=== PATIENT | male | born 1975 | race Caucasian/White ===

== ENCOUNTER 2016-10-12 02:40 | Emergency (ER) | payer OTHER ==
[~2016-10-12] VITALS: Ht 177.8 cm; Wt 74.8 kg
[~2016-10-12 02:40] MED LIST: ACETAMINOPHEN325 M1 PO; AMBIEN 10 MG TA10 MG PO; ASPIRIN EC325 M1 PO; CARISOPRODOL 3350 MG PO; CIPROFLOXACIN500 M1 PO; DESYREL50 MG PO; DIFLUCAN150 MG PO; HYDROCODONE-AP1 EAC6 PO; KEFLEX500 MG PO; LISINOPRIL10 MG PO; LISINOPRIL5 MG PO; LORTAB 7.5/5001 TA3 PO; MACROBID 100 M100 M1 PO; NAPROSYN500 MG PO; NOHOMEMEDICATIONS; NORCO 5-325 TA1 EACH PO; PERCOCET 5-3251 EACH PO; SENOKOT-S1 TA1 PO; SEROQUEL 100 M100 M1 PO; TRAZODONE HCL100 MG PO; VICODIN 5-3001 EACH PO; ZOFRAN ODT4 MG PO
[2016-10-12 02:58] LABS: URINE BILIRUBIN NEGATIVE (Negative); URINE BLOOD 1+ (Negative); URINE COLOR YELLOW; URINE GLUCOSE-RANDOM* TRACE (Negative); URINE KETONES NEGATIVE (Negative); URINE LEUKOCYTES-REFLEX NEGATIVE (Negative); URINE PROTEIN (DIPSTICK) 2+ (Negative); URINE UROBILINOGEN 0.2 E.U./dl (0.2-1.0)
[2016-10-12] MEDS ORDERED: TRAZODONE HCL100 MG PO (03:05)
[2016-10-12] MEDS ORDERED: CARVEDILOL12.5 MG PO (03:06)
[2016-10-12] MEDS ORDERED: METHYLPREDNISOLO4 M1 PO (03:06)
[2016-10-12 03:25] LABS: ABSOLUTE NEUTROPHILS 4.1 thou/uL (1.4-8.2); BASOPHILS 1.3 % (0.0-2.0); EOSINOPHILS 4.8 % (0.0-3.0); HEMATOCRIT 30.3 % (42.0-52.0); HEMOGLOBIN 11.1 gm/dL (14.0-18.0); LYMPHOCYTES 31.7 % (24.0-44.0); MCH 31.9 pg (26.0-34.0); MCHC 36.7 g/dL (28.0-37.0); MCV 86.9 fL (80.0-100.0); MONOCYTES 9.7 % (1.0-8.0); PLATELET COUNT 234 thou/uL (150-400); POLYS 52.5 % (36.0-66.0); RBC 3.49 mil/uL (4.50-6.00); RDW 13.1 % (10.5-14.5); WBC 7.8 thou/uL (4.0-11.0)
[2016-10-12 03:26] LABS: SQUAMOUS 0-3 Few /LPF (0-3)
[2016-10-12 03:27] LABS: CASTS None Seen /LPF (None Seen); CRYSTALS None Seen /LPF (None Seen); URINE RBC 0-2 Rare /HPF (0-2); URINE WBC-REFLEX None Seen /HPF (0-5)
[2016-10-12 03:31] LABS: MANUAL DIFF NO
[2016-10-12 03:38] LABS: CALCIUM 8.9 mg/dL (8.5-10.1); CREATININE 8.6 mg/dL (0.7-1.3); POTASSIUM 3.2 mmol/L (3.5-5.1)
[2016-10-12 03:42] LABS: ALBUMIN 3.7 g/dL (3.4-5.0); TOTAL BILIRUBIN 0.2 mg/dL (<0.1-1.0); TOTAL PROTEIN 7.3 g/dL (6.4-8.2)
[2016-10-12] MEDS ORDERED: NORCO 5-325 TA1 EACH PO (04:52)
[2016-10-12] MEDS ORDERED: ZOFRAN ODT4 MG PO (04:53)
[2016-10-12 05:19] VITALS: BP 180/124
== END 2016-10-12 05:20 | disposition home or self-care (01) ==
LOC: ER 02:40
PROVIDERS: Emergency Medicine
DX: R10.9 Unspecified abdominal pain (principal); F31.9 Bipolar disorder, unspecified; G89.29 Other chronic pain; I12.0 Hypertensive chronic kidney disease with stage 5 chronic kidney disease or end stage renal disease; N18.6 End stage renal disease; F17.210 Nicotine dependence, cigarettes, uncomplicated; Z99.2 Dependence on renal dialysis; Z88.8 Allergy status to other drugs, medicaments and biological substances; Z91.041 Radiographic dye allergy status

== ENCOUNTER 2016-11-26 22:23 | Emergency (ER) | payer OTHER ==
[~2016-11-26] VITALS: Ht 177.8 cm; Wt 77.1 kg
[~2016-11-26 22:23] MED LIST changes: +CARVEDILOL12.5 MG PO; +METHYLPREDNISOLO4 M1 PO
[2016-11-26 22:52] LABS: URINE BILIRUBIN NEGATIVE (Negative); URINE BLOOD 1+ (Negative); URINE COLOR YELLOW; URINE GLUCOSE-RANDOM* TRACE (Negative); URINE KETONES NEGATIVE (Negative); URINE NITRITE NEGATIVE (Negative); URINE PROTEIN (DIPSTICK) 1+ (Negative); URINE UROBILINOGEN 0.2 E.U./dl (0.2-1.0)
[2016-11-26 22:59] LABS: ABSOLUTE NEUTROPHILS 5.8 thou/uL (1.4-8.2); BASOPHILS 0.7 % (0.0-2.0); EOSINOPHILS 6.5 % (0.0-3.0); HEMATOCRIT 29.5 % (42.0-52.0); HEMOGLOBIN 10.2 gm/dL (14.0-18.0); LYMPHOCYTES 21.3 % (24.0-44.0); MCH 30.5 pg (26.0-34.0); MCHC 34.4 g/dL (28.0-37.0); MCV 88.6 fL (80.0-100.0); PLATELET COUNT 164 thou/uL (150-400); POLYS 63.5 % (36.0-66.0); RBC 3.33 mil/uL (4.50-6.00); RDW 13.3 % (10.5-14.5); WBC 9.2 thou/uL (4.0-11.0)
[2016-11-26 23:02] LABS: MANUAL DIFF NO
[2016-11-26 23:04] LABS: CALCIUM 8.5 mg/dL (8.5-10.1); CREATININE 10.4 mg/dL (0.7-1.3); POTASSIUM 3.6 mmol/L (3.5-5.1)
[2016-11-26 23:10] LABS: SQUAMOUS 0-3 Few /LPF (0-3)
[2016-11-26 23:11] LABS: BACTERIA None Seen /HPF (None Seen); CASTS None Seen /LPF (None Seen); CRYSTALS None Seen /LPF (None Seen); URINE RBC 0-2 Rare /HPF (0-2); URINE WBC 0-5 Rare /HPF (0-5)
[2016-11-27 00:05] VITALS: BP 174/112
== END 2016-11-26 23:53 | disposition home or self-care (01) ==
LOC: ER 22:23
PROVIDERS: Emergency Medicine
DX: R10.9 Unspecified abdominal pain (principal); R19.7 Diarrhea, unspecified; E87.1 Hypo-osmolality and hyponatremia; F31.9 Bipolar disorder, unspecified; I12.0 Hypertensive chronic kidney disease with stage 5 chronic kidney disease or end stage renal disease; N18.6 End stage renal disease; F17.210 Nicotine dependence, cigarettes, uncomplicated; Z91.15 Patient's noncompliance with renal dialysis; Z99.2 Dependence on renal dialysis; Z88.6 Allergy status to analgesic agent; Z91.041 Radiographic dye allergy status; Z88.8 Allergy status to other drugs, medicaments and biological substances

== ENCOUNTER 2018-08-27 01:06 | Emergency (ER) | payer OTHER ==
[~2018-08-27] VITALS: Ht 177.8 cm; Wt 81.7 kg
[~2018-08-27 01:06] MED LIST changes: +APAP650 PO
[2018-08-27 02:07] LABS: URINE BILIRUBIN NEGATIVE (Negative); URINE BLOOD TRACE (Negative); URINE CLARITY CLEAR; URINE COLOR YELLOW; URINE GLUCOSE-RANDOM* TRACE (Negative); URINE KETONES NEGATIVE (Negative); URINE LEUKOCYTES-REFLEX NEGATIVE (Negative); URINE NITRITE-REFLEX NEGATIVE (Negative); URINE PROTEIN (DIPSTICK) 1+ (Negative); URINE UROBILINOGEN 0.2 E.U./dl (0.2-1.0)
[2018-08-27 02:25] LABS: AMP/METHAMP Negative (Negative); BARBITURATES Negative (Negative); BENZODIAZEPINES Negative (Negative); COCAINE Negative (Negative); METHADONE Negative (Negative); OPIATES POSITIVE (Negative); PCP Negative (Negative)
[2018-08-27 02:54] LABS: BACTERIA-REFLEX None Seen /HPF (None Seen); CASTS None Seen /LPF (None Seen); CRYSTALS None Seen /LPF (None Seen); MUCUS None Seen strn/LPF (None Seen); SQUAMOUS None Seen /LPF (0-3); URINE RBC None Seen /HPF (0-2); URINE WBC-REFLEX None Seen /HPF (0-5)
[2018-08-27 03:00] LABS: CALCIUM 8.7 mg/dL (8.5-10.1); CREATININE 10.2 mg/dL (0.7-1.3); POTASSIUM 4.5 mmol/L (3.5-5.1)
[2018-08-27 03:05] LABS: ALBUMIN 3.2 g/dL (3.4-5.0); TOTAL BILIRUBIN 0.4 mg/dL (<0.1-1.0); TOTAL PROTEIN 6.9 g/dL (6.4-8.2)
[2018-08-27 03:49] VITALS: BP 138/91
--- NOTE | 2018-08-27 16:55 | EKG ---
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[place]: 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 : 1975 Requested By: Myrtle Aguayo Order Number: [id number] MD: Crow Mitchell Measurements Intervals [place] Rate: 74 P: 146 MD: 177 QRS: -12 QRSD: 101 T: 127 QT: 430 QTc: 477 Interpretive Statements Incomplete tracing, recommend repeat tracing Sinus or ectopic atrial rhythm Probable left atrial enlargement RSR' in V1 or V2, probably normal variant Possible lateral infarct, age indeterminate no previous ECGs available for comparison Electronically Signed On 08-27-2018 16:55:36 CDT by Crow Mitchell [email or web address] ��������������������������������������������� <ELECTRONICALLY SIGNED> ���������������������������������������� By: Crow Mitchell MD, [facility] ��������������������������������������������� 08/27/18 1655 0242 0242 Crow Mitchell MD, [facility] /EPI
== END 2018-08-27 03:49 | disposition home or self-care (01) ==
LOC: ER 01:06
PROVIDERS: Student in an Organized Health Care Education/Training Program
DX: R10.9 Unspecified abdominal pain (principal); R19.7 Diarrhea, unspecified; F17.210 Nicotine dependence, cigarettes, uncomplicated; F31.9 Bipolar disorder, unspecified; G89.29 Other chronic pain; I12.0 Hypertensive chronic kidney disease with stage 5 chronic kidney disease or end stage renal disease; N18.6 End stage renal disease; Z88.8 Allergy status to other drugs, medicaments and biological substances; Z91.041 Radiographic dye allergy status

== ENCOUNTER 2018-10-19 18:51 | Emergency (ER) | payer OTHER ==
[~2018-10-19] VITALS: Ht 177.8 cm; Wt 81.7 kg
[2018-10-19 19:37] LABS: ABSOLUTE NEUTROPHILS 5.1 thou/uL (1.4-8.2); BASOPHILS 0.8 % (0.0-2.0); EOSINOPHILS 1.4 % (0.0-3.0); HEMATOCRIT 31.6 % (42.0-52.0); HEMOGLOBIN 10.7 gm/dL (14.0-18.0); LYMPHOCYTES 11.2 % (24.0-44.0); MCH 28.8 pg (26.0-34.0); MCHC 33.8 g/dL (28.0-37.0); MCV 85.2 fL (80.0-100.0); MONOCYTES 9.5 % (1.0-8.0); PLATELET COUNT 172 thou/uL (150-400); POLYS 77.1 % (36.0-66.0); RBC 3.71 mil/uL (4.50-6.00); RDW 15.5 % (10.5-14.5); WBC 6.6 thou/uL (4.0-11.0)
[2018-10-19 19:40] LABS: ANION GAP 10 mmol/L (7-16); BUN 13 mg/dL (7-18); CALCIUM 8.8 mg/dL (8.5-10.1); CHLORIDE 94 mmol/L (98-107); CO2 28 mmol/L (21-32); CREATININE 4.9 mg/dL (0.7-1.3); GLUCOSE 122 mg/dL (74-106); POTASSIUM 3.1 mmol/L (3.5-5.1); SODIUM 132 mmol/L (136-145)
[2018-10-19 19:44] LABS: URINE BILIRUBIN NEGATIVE (Negative); URINE BLOOD TRACE (Negative); URINE CLARITY CLEAR; URINE COLOR YELLOW; URINE GLUCOSE-RANDOM* 1+ (Negative); URINE KETONES NEGATIVE (Negative); URINE LEUKOCYTES-REFLEX NEGATIVE (Negative); URINE NITRITE-REFLEX NEGATIVE (Negative); URINE PROTEIN (DIPSTICK) 1+ (Negative); URINE SPECIFIC GRAVITY <= 1.005 (1.005-1.035); URINE UROBILINOGEN 0.2 E.U./dl (0.2-1.0)
[2018-10-19 19:50] LABS: ALBUMIN 3.8 g/dL (3.4-5.0); APTT 30.9 Seconds (24.5-32.8); INR 1.1; LIPASE 182 U/L (73-393); MAGNESIUM 1.9 mg/dL (1.8-2.4); PROTIME 11.1 Seconds (9.3-11.4); SGOT 19 U/L (15-37); SGPT 16 U/L (30-65); TOTAL BILIRUBIN 0.7 mg/dL (<0.1-1.0); TOTAL PROTEIN 7.7 g/dL (6.4-8.2); TROPONIN-I <0.06 ng/mL (<0.06)
[2018-10-19 19:56] LABS: SQUAMOUS 4-10 Moderate /LPF (0-3); URINE RBC 0-2 Rare /HPF (0-2); URINE WBC-REFLEX 0-5 Rare /HPF (0-5)
[2018-10-19 19:57] LABS: BACTERIA-REFLEX 1-9 Few /HPF (None Seen); CASTS None Seen /LPF (None Seen); CRYSTALS None Seen /LPF (None Seen)
[2018-10-19] MEDS ORDERED: NORCO 5-325 TA1 EACH PO ×2 (20:43→20:50)
[2018-10-19] MEDS ORDERED: ONDANSETRON ODT8 MG PO ×2 (20:43→20:50)
[2018-10-19] MEDS ORDERED: LOPERAMIDE 2 MG2 M1 PO ×2 (20:43→20:50)
[2018-10-19 21:38] VITALS: BP 160/100
--- NOTE | 2018-10-21 08:41 | EKG ---
[address] [employer] 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: [place] : 1975 Requested By: Kennedy Khoury Order Number: [id number] MD: Quinn Billy Measurements Intervals [place] Rate: 80 P: 54 MO: 171 QRS: -4 QRSD: 103 T: 23 QT: 429 QTc: 495 Interpretive Statements Sinus rhythm Probable left atrial enlargement Left ventricular hypertrophy Borderline prolonged QT interval Compared to ECG 08/27/2018 02:42:12 Electronically Signed On 10-21-2018 8:40:46 CDT by Quinn Billy [email or web address] ��������������������������������������������� <ELECTRONICALLY SIGNED> ���������������������������������������� By: Quinn Billy MD ��������������������������������������������� 10/21/18 0840 40 40 Quinn Billy MD /ADAM
== END 2018-10-19 21:58 | disposition home or self-care (01) ==
LOC: ER 18:51
PROVIDERS: Emergency Medicine
DX: I12.0 Hypertensive chronic kidney disease with stage 5 chronic kidney disease or end stage renal disease (principal); N18.6 End stage renal disease; R11.2 Nausea with vomiting, unspecified; R19.7 Diarrhea, unspecified; M89.9 Disorder of bone, unspecified; F31.9 Bipolar disorder, unspecified; G89.29 Other chronic pain; R10.9 Unspecified abdominal pain; F17.210 Nicotine dependence, cigarettes, uncomplicated; Z88.1 Allergy status to other antibiotic agents; Z91.041 Radiographic dye allergy status; Z88.8 Allergy status to other drugs, medicaments and biological substances; Z99.2 Dependence on renal dialysis

== ENCOUNTER 2019-01-30 02:58 | Emergency (ER) | payer OTHER ==
[~2019-01-30] VITALS: Ht 177.8 cm; Wt 81.7 kg
[~2019-01-30 02:58] MED LIST changes: +LOPERAMIDE 2 MG2 M1 PO; +ONDANSETRON ODT8 MG PO
[2019-01-30 03:44] LABS: HEMOGLOBIN 12.8 gm/dL (14.0-18.0)
[2019-01-30 03:46] LABS: ABSOLUTE NEUTROPHILS 4.3 thou/uL (1.4-8.2); BASOPHILS 1.5 % (0.0-2.0); EOSINOPHILS 4.1 % (0.0-3.0); HEMATOCRIT 40.4 % (42.0-52.0); LYMPHOCYTES 16.9 % (24.0-44.0); MCH 26.7 pg (26.0-34.0); MCHC 31.6 g/dL (28.0-37.0); MCV 84.6 fL (80.0-100.0); MONOCYTES 10.1 % (1.0-8.0); PLATELET COUNT 158 thou/uL (150-400); POLYS 67.4 % (36.0-66.0); RBC 4.78 mil/uL (4.50-6.00); WBC 7.1 thou/uL (4.0-11.0)
[2019-01-30 03:49] LABS: CALCIUM 9.1 mg/dL (8.5-10.1); CREATININE 4.8 mg/dL (0.7-1.3)
[2019-01-30 03:54] LABS: URINE BILIRUBIN NEGATIVE (Negative); URINE BLOOD 3+ (Negative); URINE CLARITY CLOUDY; URINE COLOR YELLOW; URINE GLUCOSE-RANDOM* TRACE (Negative); URINE KETONES NEGATIVE (Negative); URINE NITRITE-REFLEX NEGATIVE (Negative); URINE PROTEIN (DIPSTICK) 2+ (Negative); URINE UROBILINOGEN 0.2 E.U./dl (0.2-1.0)
[2019-01-30 03:56] LABS: ALBUMIN 3.4 g/dL (3.4-5.0); TOTAL BILIRUBIN 1.1 mg/dL (<0.1-1.0); TOTAL PROTEIN 7.9 g/dL (6.4-8.2)
[2019-01-30 04:10] VITALS: BP 159/118
[2019-01-30 04:48] LABS: URINE LEUKOCYTES-REFLEX 3+ (Negative)
[2019-01-30 04:49] LABS: SQUAMOUS 0-3 Few /LPF (0-3); WBC CLUMPS Moderate (None Seen)
[2019-01-30 04:50] LABS: BACTERIA-REFLEX 1-9 Few /HPF (None Seen); CASTS None Seen /LPF (None Seen); CRYSTALS None Seen /LPF (None Seen); MUCUS 0-3 Light strn/LPF (None Seen); URINE WBC-REFLEX >25 Many /HPF (0-5)
== END 2019-01-30 04:33 | disposition left against medical advice (07) ==
LOC: ER 02:58
PROVIDERS: Emergency Medicine
DX: M54.5 Low back pain (principal); F31.9 Bipolar disorder, unspecified; I12.0 Hypertensive chronic kidney disease with stage 5 chronic kidney disease or end stage renal disease; N18.6 End stage renal disease; G89.29 Other chronic pain; R10.9 Unspecified abdominal pain; F17.210 Nicotine dependence, cigarettes, uncomplicated; Z99.2 Dependence on renal dialysis; Z91.041 Radiographic dye allergy status; Z88.8 Allergy status to other drugs, medicaments and biological substances; Z88.2 Allergy status to sulfonamides

== ENCOUNTER 2019-03-19 09:22 | Inpatient (IN) | payer OTHER ==
[~2019-03-19] VITALS: Ht 177.8 cm; Wt 69.2 kg
[2019-03-19 09:26] VITALS: BP 179/119
[2019-03-19 09:57] LABS: HEMATOCRIT 34.7 % (42.0-52.0); HEMOGLOBIN 11.3 gm/dL (14.0-18.0); MCH 27.5 pg (26.0-34.0); MCHC 32.4 g/dL (28.0-37.0); MCV 84.8 fL (80.0-100.0); PLATELET COUNT 119 thou/uL (150-400); RDW 20.9 % (10.5-14.5); WBC 3.7 thou/uL (4.0-11.0)
[2019-03-19 10:08] LABS: ANION GAP 9 mmol/L (7-16); BUN 15 mg/dL (7-18); CALCIUM 10.5 mg/dL (8.5-10.1); CHLORIDE 100 mmol/L (98-107); CO2 27 mmol/L (21-32); CREATININE 3.5 mg/dL (0.7-1.3); GLUCOSE 103 mg/dL (74-106); POTASSIUM 3.4 mmol/L (3.5-5.1); SODIUM 136 mmol/L (136-145)
[2019-03-19 10:16] LABS: TROPONIN-I <0.06 ng/mL (<0.06)
[2019-03-19 10:42] LABS: ABSOLUTE NEUTROPHILS 2.1 thou/uL (1.4-8.2); PLATELET ESTIMATE NORMAL
[2019-03-19 13:55] LABS: CHOLESTEROL 94 mg/dL (<200); HDL CHOLESTEROL 48 mg/dL (>40); LDL CHOLESTEROL 38 mg/dL (<100); MAGNESIUM 2.1 mg/dL (1.8-2.4); TOTAL PROTEIN 7.6 g/dL (6.4-8.2); TRIGLYCERIDE 42 mg/dL (<150); VLDL 8 mg/dL (<40)
[2019-03-19 18:45] VITALS: BP 191/128
[2019-03-19 19:25] VITALS: BP 170/124
--- NOTE | 2019-03-19 20:31 | NUR ---
PATIENT LEFT AMA SHORTLY AFTER SYSTEM ASSESSMENT. PATIENT WAS UPSET ABOUT MULTIPLE THINGS. NURSE HAD ADMITTING DOCTOR GO INTO ROOM TO SPEAK WITH PATIENT BUT HE MADE UP HIS MIND AT A SHOPRTLY LATER TIME THAT HE WANTED "TO GO HOME." YADIRA ALMAGUER AND CONSULTS CONTACTED. INCIDENT REPORT TO BE FILLED OUT.
--- NOTE | 2019-03-20 08:34 | EKG ---
[place] [address] [employer] [facility] [employer] [place] [address] ELECTROCARDIOGRAM REPORT Name: GARCIA TANNER Room #: 360-[facility] IN M.R.#: [id number] Admission: 03/19/19 Attend Phys: Aly Reddy MD Discharge: 03/19/19 Date of : 79 Report #: [id number] THIS REPORT FOR: //name// [facility] ED Test Date: 2019-03-19 Test Time: 09:23:02 Pat Name: GARCIA TANNER Department: Room: [facility] Gender: M Oncology Rep: : 1975 Requested By: Newton Laughlin Order Number: [id number] MD: Crow Mitchell Measurements Intervals [place] Rate: 96 P: 67 CO: 183 QRS: -1 QRSD: 111 T: 58 QT: 372 QTc: 471 Interpretive Statements Sinus rhythm RSR' in V1 or V2, right VCD Compared to ECG 10/19/2018 19:41:41 no significant change was found Electronically Signed On 03-20-2019 8:33:52 CDT by Crow Mitchell [email or web address] <ELECTRONICALLY SIGNED> By: Crow Mitchell MD, [facility] 03/20/19 0833 Crow Mitchell MD, [facility] /EPI
== END 2019-03-19 20:12 | disposition left against medical advice (07) | DRG 313 ==
LOC: ER 09:22 → EROBS 13:37 → 3W 19:11
PROVIDERS: Emergency Medicine; ADMIT Internal Medicine
DX: R07.89 Other chest pain (principal); N18.6 End stage renal disease; I12.0 Hypertensive chronic kidney disease with stage 5 chronic kidney disease or end stage renal disease; J90 Pleural effusion, not elsewhere classified; G89.29 Other chronic pain; F31.9 Bipolar disorder, unspecified; E87.6 Hypokalemia; I16.0 Hypertensive urgency; E78.00 Pure hypercholesterolemia, unspecified; Z53.29 Procedure and treatment not carried out because of patient's decision for other reasons; F17.210 Nicotine dependence, cigarettes, uncomplicated; E78.5 Hyperlipidemia, unspecified; Z99.2 Dependence on renal dialysis; Z87.01 Personal history of pneumonia (recurrent); Z88.8 Allergy status to other drugs, medicaments and biological substances; Z91.041 Radiographic dye allergy status; Z79.899 Other long term (current) drug therapy; Z87.19 Personal history of other diseases of the digestive system; Z82.49 Family history of ischemic heart disease and other diseases of the circulatory system
CPT/HCPCS: 10879

== ENCOUNTER 2019-06-19 00:32 | Emergency (ER) | payer OTHER ==
[~2019-06-19] VITALS: Ht 177.8 cm; Wt 81.7 kg
[2019-06-19 00:47] VITALS: BP 177/111
[2019-06-19 01:12] LABS: URINE BILIRUBIN NEGATIVE (Negative); URINE BLOOD TRACE (Negative); URINE CLARITY CLEAR; URINE COLOR YELLOW; URINE GLUCOSE-RANDOM* TRACE (Negative); URINE KETONES NEGATIVE (Negative); URINE LEUKOCYTES-REFLEX NEGATIVE (Negative); URINE NITRITE-REFLEX NEGATIVE (Negative); URINE PROTEIN (DIPSTICK) 1+ (Negative)
[2019-06-19 01:20] LABS: BACTERIA-REFLEX None Seen /HPF (None Seen); CASTS None Seen /LPF (None Seen); CRYSTALS None Seen /LPF (None Seen); SQUAMOUS 0-3 Few /LPF (0-3); URINE RBC 0-2 Rare /HPF (0-2); URINE WBC-REFLEX 0-5 Rare /HPF (0-5)
== END 2019-06-19 01:07 | disposition left against medical advice (07) ==
LOC: ER 00:32
PROVIDERS: Student in an Organized Health Care Education/Training Program
DX: M54.9 Dorsalgia, unspecified (principal); G89.29 Other chronic pain; I12.0 Hypertensive chronic kidney disease with stage 5 chronic kidney disease or end stage renal disease; N18.6 End stage renal disease; F31.9 Bipolar disorder, unspecified; F17.210 Nicotine dependence, cigarettes, uncomplicated; Z99.2 Dependence on renal dialysis; Z91.041 Radiographic dye allergy status; Z88.6 Allergy status to analgesic agent; Z88.8 Allergy status to other drugs, medicaments and biological substances

== ENCOUNTER 2019-10-24 00:13 | Inpatient (IN) | payer OTHER ==
[~2019-10-24] VITALS: Ht 177.8 cm; Wt 81.7 kg
[2019-10-24 00:14] VITALS: BP 145/87
[2019-10-24 00:55] LABS: MCH 32.4 pg (26.0-34.0); MCHC 32.9 g/dL (28.0-37.0); MCV 98.2 fL (80.0-100.0); RBC 1.17 mil/uL (4.50-6.00); RDW 19.1 % (10.5-14.5)
[2019-10-24 01:11] LABS: HEMATOCRIT 11.5 % (42.0-52.0); HEMOGLOBIN 3.8 gm/dL (14.0-18.0)
[2019-10-24 01:12] LABS: CALCIUM 8.4 mg/dL (8.5-10.1); CREATININE 6.5 mg/dL (0.7-1.3); POTASSIUM 3.4 mmol/L (3.5-5.1)
[2019-10-24 01:22] LABS: ALBUMIN 2.6 g/dL (3.4-5.0); TOTAL BILIRUBIN 0.6 mg/dL (0.2-1.0); TOTAL PROTEIN 5.6 g/dL (6.4-8.2); TROPONIN-I 0.16 ng/mL (<0.06)
--- NOTE | 2019-10-24 01:37 | NUR ---
PATHOLOGY CORE CALLED TO REPORT MD NEEDS TO ORDER ANOTHER UNIT, PROVIDER CALL ONLY ORDER ONE UNIT AT A TIME.
--- NOTE | 2019-10-24 01:39 | NUR ---
REPORTED PATHOLOGY INFORMATION TO DR. LEE.
[2019-10-24 01:42] LABS: INR 1.1; PROTIME 10.9 Seconds (9.3-11.4)
[2019-10-24 03:04] VITALS: BP 129/89; BP 131/84; BP 134/92; BP 138/88; BP 140/94
[2019-10-24 05:07] VITALS: BP 153/99
[2019-10-24 06:13] VITALS: BP 140/94
[2019-10-24 06:29] LABS: URINE BILIRUBIN NEGATIVE (Negative); URINE BLOOD 3+ (Negative); URINE COLOR YELLOW; URINE GLUCOSE-RANDOM* NEGATIVE (Negative); URINE KETONES NEGATIVE (Negative); URINE NITRITE-REFLEX NEGATIVE (Negative); URINE PROTEIN (DIPSTICK) 2+ (Negative); URINE SPECIFIC GRAVITY 1.015 (1.005-1.035); URINE UROBILINOGEN 0.2 E.U./dl (0.2-1.0)
[2019-10-24 06:30] LABS: URINE CLARITY CLOUDY; URINE LEUKOCYTES-REFLEX 3+ (Negative)
[2019-10-24 06:44] LABS: % SATURATION 29 % (20-39); IRON 66 ug/dL (65-175); TIBC 226 ug/dL (250-450)
[2019-10-24 06:44] LABS: CASTS None Seen /LPF (None Seen); SQUAMOUS 0-3 Few /LPF (0-3)
[2019-10-24 06:45] LABS: BACTERIA-REFLEX >30 Many /HPF (None Seen); CRYSTALS None Seen /LPF (None Seen); URINE RBC 3-10 Few /HPF (0-2); URINE WBC-REFLEX >25 Many /HPF (0-5); WBC CLUMPS Packed (None Seen)
--- NOTE | 2019-10-24 07:52 | NUR ---
PATIENT ADMITTED FROM ED DEPARTMENT AT 0640, TRANSFERRED TO ICU BED, PLACED ON MONITOR AND IN ISOLATION PRECAUTIONS. REPORT GIVEN TO ONCOMING RN.
--- NOTE | 2019-10-24 08:16 | NUR ---
RN assumed care at 0700. PT was screaming in room, "I'm in pain, I wanna go home right now." RN told PT that she would contact his attending provider and ask for PRN pain medication. PT said, "no, I'm going home to lay in my own bed and take my medicine." RN paged Dr. Isaac at approximately 0745. RN attempted to calm PT and educated PT on the dangers of low hemoglobin and plan of care. PT is A&O to person, place, time, and situation and is capable of making his own decisions. PT verbalized understanding of education and risks involved. PT stated, "yeah I know the risks. I could fall, get in a car accident, bleed to , pass out, whatever." RN attempted to perform a physical assessment on PT however he refused. PT ripped off his O2 saturation probe and would not allow it to be put on. PT's heart rate was in the 90s on telemetry and appeared to be in sinus tach. RN attempted to obtain vital signs on PT. PT started yelling that his arm hurt from the blood pressure cuff and he ripped off the cuff and threw it on the ground. PT proceeded to rip out one of his peripheral IVs and threw that on the ground and began yelling that he was going to leave now. RN called for security to help escort the PT out. RN took out PT's second peripheral IV and PT signed AMA papers. PT refused to receive any further education or documents. PT refused to allow RN to call any family or friends stating that he drove himself to the hospital. RN notified Dr. Isaac at 0815 that PT will go AMA. Security escorted PT out to his personal vehicle at approximately 0820.
--- NOTE | 2019-10-27 08:13 | EKG ---
[facility] [place] [address] ELECTROCARDIOGRAM REPORT Name: SADIEGARCIA STEVEN CINDY Room #: 240-P [facility] IN M.R.#: [id number] Admission: 10/24/19 Attend Phys: Jered Virgen MD Discharge: 10/24/19 Date of : [birth year] Report #: [id number] THIS REPORT FOR: cc: [facility] [place] - Clinic physician unknown [facility] [place] - Clinic physician unknown Crow Mitchell MD [facility] ~ THIS REPORT FOR: //name// [facility] ED Test Date: 2019-10-24 Test Time: 00:48:19 Pat Name: GARCIA TANNER Department: Room: 240 Gender: M 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: NO : 1975 Requested By: Myrtle Aguayo Order Number: [id number] MD: Crow Mitchell Measurements Intervals [place] Rate: 102 P: 58 WI: 179 QRS: 67 QRSD: 112 T: 55 QT: 367 QTc: 479 Interpretive Statements Sinus tachycardia Incomplete right bundle branch block Nonspecific ST segment abnormality Borderline prolonged QT interval Compared to ECG 03/19/2019 09:23:02 No significant change was found Electronically Signed On 10-27-2019 8:11:17 CDT by Crow Mitchell [email or web address] <ELECTRONICALLY SIGNED> By: Crow Mitchell MD, [facility] 10/27/19 0811 0048 Crow Mitchell MD, [facility] /EPI
== END 2019-10-24 08:20 | disposition left against medical advice (07) | DRG 377 ==
LOC: ER 00:13 → ICU 02:26 → EROBS 02:26 → ICU 06:16
PROVIDERS: Nurse Practitioner Family; Student in an Organized Health Care Education/Training Program; ADMIT Hospitalist; ATTEND Hospitalist
PROC: 5A1D70Z Performance of Urinary Filtration, Intermittent, Less than 6 Hours Per Day (ICD-10-PCS; principal; 2019-10-24)
PROC: 30233N1 Transfusion of Nonautologous Red Blood Cells into Peripheral Vein, Percutaneous Approach (ICD-10-PCS; principal; 2019-10-24)
DX: K92.1 Melena (principal); N18.6 End stage renal disease; R57.8 Other shock; D62 Acute posthemorrhagic anemia; F11.20 Opioid dependence, uncomplicated; I12.0 Hypertensive chronic kidney disease with stage 5 chronic kidney disease or end stage renal disease; F31.9 Bipolar disorder, unspecified; G89.29 Other chronic pain; R10.9 Unspecified abdominal pain; F17.210 Nicotine dependence, cigarettes, uncomplicated; Z20.828 Contact with and (suspected) exposure to other viral communicable diseases; Z53.29 Procedure and treatment not carried out because of patient's decision for other reasons; Z99.2 Dependence on renal dialysis; Z91.041 Radiographic dye allergy status; Z88.8 Allergy status to other drugs, medicaments and biological substances
CPT/HCPCS: 10078; 10081; 32100

== ENCOUNTER 2019-10-24 18:17 | Inpatient (IN) | payer OTHER ==
[~2019-10-24] VITALS: Ht 177.8 cm; Wt 71.9 kg
[2019-10-24 18:22] VITALS: BP 132/90
[2019-10-24 19:49] LABS: ABSOLUTE NEUTROPHILS 3.5 thou/uL (1.4-8.2); BASOPHILS 2.7 % (0.0-2.0); MCV 96.9 fL (80.0-100.0); MONOCYTES 8.7 % (1.0-8.0); PLATELET COUNT 130 thou/uL (150-400); POLYS 61.6 % (36.0-66.0); RBC 1.65 mil/uL (4.50-6.00); RDW 17.6 % (10.5-14.5); WBC 5.6 thou/uL (4.0-11.0)
[2019-10-24 20:02] LABS: HEMATOCRIT 15.9 % (42.0-52.0); HEMOGLOBIN 5.3 gm/dL (14.0-18.0)
[2019-10-24 20:08] LABS: CALCIUM 8.7 mg/dL (8.5-10.1); POTASSIUM 4.2 mmol/L (3.5-5.1)
[2019-10-24 20:09] LABS: CREATININE 7.7 mg/dL (0.7-1.3)
[2019-10-24 20:13] LABS: ALBUMIN 2.5 g/dL (3.4-5.0); TOTAL BILIRUBIN 0.7 mg/dL (0.2-1.0); TOTAL PROTEIN 5.8 g/dL (6.4-8.2)
[2019-10-24 21:09] VITALS: BP 132/90
--- NOTE | 2019-10-24 21:30 | NUR ---
ATTEMPT TO CALL REPORT AT 7455.
[2019-10-24 21:50] VITALS: BP 166/105; BP 183/80
[2019-10-24 23:07] VITALS: BP 146/87; BP 176/87
[2019-10-25 02:06] VITALS: BP 146/87
--- NOTE | 2019-10-25 04:55 | NUR ---
PT ADMITTED YESTERDAY THROUGH ED DUE WEAKNESS AND LOW H&H. 5.3 AND 15.9. PT DENIES CHEST PAIN, COUGH OR SOB. REPORTS ABDOMINAL PAIN, HYDROCODONE X1 PRN GIVEN. 1 UNIT PRBC TRANSFUSED. REPEAT H&H THIS MORNING WITH AM LABS. CONSENT FORMS SIGNED. PT TO FACILITATE MEDICATION LIST FOR ACCURATE MED REG. PT ORIENTED TO ROOM AND CALL LIGHT SYSTEM. ENCOURAGED TO CALL FOR HELP DUE TO WEAKNESS. LEFT UPPER ARM DIALYSIS FISTULA. BRUIT FELT. SR ON THE MONITOR WITH INTERMITTENT 1AVB IN SOME LEADS. NO OTHER CONCERNS AT THIS TIME. WILL CONTINUE TO MONITOR PTs LABS AND PROMOTE SAFETY.
[2019-10-25 05:30] VITALS: BP 169/98
[2019-10-25 06:01] LABS: MCV 93.8 fL (80.0-100.0); WBC 5.4 thou/uL (4.0-11.0)
[2019-10-25 06:03] LABS: MCH 31.4 pg (26.0-34.0); MCHC 33.5 g/dL (28.0-37.0); RBC 2.04 mil/uL (4.50-6.00); RDW 16.8 % (10.5-14.5)
[2019-10-25 06:09] LABS: CALCIUM 8.3 mg/dL (8.5-10.1); CREATININE 8.5 mg/dL (0.7-1.3); HEMATOCRIT 19.2 % (42.0-52.0); HEMOGLOBIN 6.4 gm/dL (14.0-18.0); POTASSIUM 4.2 mmol/L (3.5-5.1)
--- NOTE | 2019-10-25 06:38 | NUR ---
Patient was found with his home prescription of hydrocodone 10-325 and refused to let the RN send it to pharmacy. After discussing hospital policy with the patient, myself and Meli Vee RN counted the pills with the patient and sent them to pharmacy. Pt has jeans on and pockets were searched, nothing was found. Pt had no other belongings.
--- NOTE | 2019-10-25 06:47 | NUR ---
AT APPROXIMATELY 0600 THIS NURSE WAS ALERTED BY NAIMA MCKEON THAT PATIENT HAD WHAT SOUNDED LIKE A PILL BOTTLE WITH MEDICATION IN HIS POCKET WHEN SHE WAS ESCORTING HIM TO THE BATHROOM. NURSE ALERTED PATIENTS NURSE AND HAD SOMEONE STAY WITH HIM. PATIENT REFUSED TO TURN MEDICATION OVER TO EKATERINA GARZON AND THEN THIS NURSE STATING THAT HE "WASN'T GOING TO LOSE THEM." THIS NURSE STAYED WITH PATIENT WHILE CALLING LICENSED VETERINARY TECHNICIAN TO ALERT HER TO SITUATION. LICENSED VETERINARY TECHNICIAN CAME TO PATIENTS ROOM AND WHILE HE WAS RESISTANT AT FIRST, HE HANDED HIS MEDICATIONS OVER TO HER AND THIS NURSE. PILLS COUNTED IN FRONT OF PATIENT WITH 27 HYDROCODONE COUNTED AND SENT TO PHARMACY PER PROTOCOL.
[2019-10-25 07:29] LABS: % SATURATION 38 % (20-39); IRON 80 ug/dL (65-175); TIBC 211 ug/dL (250-450)
--- NOTE | 2019-10-25 08:17 | NUR ---
ASSUMED CARE OF PT AT SHIFT CHANGE; IN GOOD SPIRITS. REPORTS OF ANOTHER TRANSFUSION TO BE DONE THIS A.M., WILL DO SO WHEN ABLE. A&0X4, STATES HE'S WEAK YET DOES NOT USE IN ASSISTIVE DEVICES. BP'S HIGH THIS A.M. REC LISINOPRIL AND IS UNDERGOING BEGINNING OF DIALYSIS VIA YAZMIN. HAS BEEN ON FOR 6-7 YEARS. ASKING FOR A SHOWER. SEE SEPARATE INTERVENTIONS FOR ASSESSMENTS. ENCOURAGED HIM TO CALL FOR ANY NEEDS
--- NOTE | 2019-10-25 10:33 | NUR ---
BLOOD TRANSFUSION CONFIRMED WITH ANOTHER DYEHOUSE WORKER AND DIALYSIS STAFF DID THEIR OWN PAPERWORK AND TRANSFUSION DURING DIALYSIS. SEE PAPERWORK
[2019-10-25 10:40] VITALS: BP 145/72; BP 146/67; BP 157/75
[2019-10-25 13:55] LABS: HEMATOCRIT 22.8 % (42.0-52.0); HEMOGLOBIN 7.7 gm/dL (14.0-18.0)
--- NOTE | 2019-10-25 15:54 | NUR ---
PT REFUSAL OF VS AND BLOOD SUGARS, IMMEDIATELY AFTER DIALYSIS HE CALLED HIS NURSE IN TO THE ROOM AND YELLED FOR ME TO GET THEM OUT. REMINDER OF WHAT WAS JUST DONE TO SAVE HIS LIFE AND THEY'D BE OUT OF THE ROOM WHEN THEY WERE DONE WITH ALL PREPARATIONS. HE CALMED DOWN THEN SAID THE BLEACH SMELL WAS MAKING HIM SICK. TURNED ON FAN.
[2019-10-25 16:48] VITALS: BP 158/100
[2019-10-25 19:30] VITALS: BP 146/82
[2019-10-27 02:07] LABS: HEP B SURFACE Ab(ANTI-HBS Reactive (()); HEPATITIS B SURFACE AG Negative (Negative)
--- NOTE | 2019-10-29 09:18 | HC ---
[facility] [place] [address] CONSULTATION Name: GARCIA TANNER Room #: 213-P [facility] IN M.R.#: [id number] Admission: 10/24/19 Attend Phys: Christopher Wilson MD Discharge: 10/26/19 Date of : [birth year] Report #: [id number] THIS REPORT FOR: cc: [facility] - Clinic physician unknown [facility] - Clinic physician unknown Joyce Schaeffer MD ~ CC: [facility] unknown Christopher Wilson REASON FOR THE CONSULTATION: End-stage renal disease. REASON FOR THE PRESENTATION: Weakness. HISTORY OF PRESENT ILLNESS: A 43-year-old with past medical history of end-stage renal disease, who presented yesterday to the Emergency Room reporting that he has been having some issues with nausea, vomiting, associated with hematemesis, epistaxis. He was found to have severe anemia with a hemoglobin of 3.8 on 10/23. He was transfused and this has gone up to 5.1. Workup had been initiated; however, the patient left against medical advice. He was readmitted yesterday. I am being asked to evaluate him for his end-stage renal disease. The patient has been on dialysis for a few years. He dialyzes every Sunday, Sunday and Sunday. He tells me that he has not been missing his erythropoietin on his dialysis session. He reported to hematemesis and melena. PAST MEDICAL HISTORY: Extensive and includes the followin. End-stage renal disease. 2. Hypertension. 3. Chronic narcotic abuse. 4. GI bleeding. 5. Hyperparathyroidism. 6. AV fistula. ALLERGIES: CONTRAST AND PROMETHAZINE. SOCIAL HISTORY: He continues to smoke. He denies drug or alcohol abuse. 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 FAMILY HISTORY: Significant for hypertension. REVIEW OF SYSTEMS: GENERAL: No fever or chills. CARDIOVASCULAR: No chest pain or palpitation. PULMONARY: No cough or hemoptysis. GASTROINTESTINAL: As per the history of present illness. MUSCULOSKELETAL: Occasional back pain and arthralgias. NEUROLOGICAL: No headache, no dizziness, no syncope; however, he did have some fall episodes. [facility] [address] [place] [address] CONSULTATION Name: GARCIA TANNER Room #: 213-P [facility] IN .R.#: [id number] Admission: 10/24/19 Attend Phys: Christopher Wilson MD Discharge: 10/26/19 Date of : 79 Report #: [id number] MEDICATIONS: Listed amongst his medications: 1. Lisinopril. 2. Hydrocodone. 3. Seroquel. PHYSICAL EXAMINATION: GENERAL: He is alert, oriented. VITAL SIGNS: Blood pressure is 169/98, temperature is 36.8, pulse rate is 85, respiratory rate is 16. HEAD AND NECK: No jugular venous distention, no bruit, no thyromegaly. CHEST: Decreased air entry bilaterally but no crackles. CARDIOVASCULAR: No rub detected. ABDOMEN: Soft, nontender. EXTREMITIES: Lower extremities, no edema. Upper extremities: Left AV fistula. LABORATORY VALUES: From today revealed the following: Hemoglobin is 6.4. Chemistry revealed a sodium of 134, potassium of 4.2, BUN of 39, creatinine of 8.5. ASSESSMENT, IMPRESSION, PLAN: 1. End-stage renal disease. 2. Severe anemia. 3. Noncompliance. 4. Arrange for the patient to have his usual hemodialysis today as he missed his dialysis yesterday. 5. An anemia workup. 6. Check iron studies. 7. P.r.n. transfusion. 8. We will continue to follow. <ELECTRONICALLY SIGNED> By: Joyce Schaeffer MD 10/29/19 0918 0704 0821 Joyce Schaeffer MD /nt
== END 2019-10-26 04:32 | disposition home or self-care (01) | DRG 377 ==
LOC: ER 18:17 → EROBS 20:24 → 3W 21:37 → 2N 21:38
PROVIDERS: Emergency Medicine; Hospitalist; Nurse Practitioner Family; ADMIT Internal Medicine; ATTEND Internal Medicine
PROC: 30233N1 Transfusion of Nonautologous Red Blood Cells into Peripheral Vein, Percutaneous Approach (ICD-10-PCS; principal; 2019-10-24)
PROC: 5A1D70Z Performance of Urinary Filtration, Intermittent, Less than 6 Hours Per Day (ICD-10-PCS; 2019-10-25)
DX: K92.0 Hematemesis (principal); N18.6 End stage renal disease; D62 Acute posthemorrhagic anemia; I12.0 Hypertensive chronic kidney disease with stage 5 chronic kidney disease or end stage renal disease; K92.1 Melena; F31.9 Bipolar disorder, unspecified; F11.90 Opioid use, unspecified, uncomplicated; F17.210 Nicotine dependence, cigarettes, uncomplicated; E21.3 Hyperparathyroidism, unspecified; G89.29 Other chronic pain; R10.9 Unspecified abdominal pain; Z79.899 Other long term (current) drug therapy; Z99.2 Dependence on renal dialysis; Z87.01 Personal history of pneumonia (recurrent); Z88.8 Allergy status to other drugs, medicaments and biological substances; Z91.041 Radiographic dye allergy status; Z91.19 Patient's noncompliance with other medical treatment and regimen
CPT/HCPCS: 10081; 32100

== ENCOUNTER 2020-07-30 23:13 | Emergency (ER) | payer OTHER ==
[~2020-07-30] VITALS: Ht 177.8 cm; Wt 72.6 kg
[2020-07-30 23:18] VITALS: BP 160/98
--- NOTE | 2020-07-31 11:23 | EKG ---
[address] [place] [employer] [place] [address] ELECTROCARDIOGRAM REPORT Name: GARCIA TANNER [facility] [id number] Admission: 07/30/20 Attend Phys: Discharge: 07/31/20 Date of : [birth year] Report #: [id number] [facility] ED Test Date: 2020-07-30 Test Time: 23:28:06 Pat Name: GARCIA TANNER Department: Room: Gender: Microbiology Technician: BLANCA : 1975 Requested By: Kentrell Juarez Order Number: [id number] MD: Crow Mitchell Measurements Intervals [place] Rate: 91 P: 59 MS: 170 QRS: 104 QRSD: 107 T: 55 QT: 384 QTc: 473 Interpretive Statements Sinus rhythm Right ventricular conduction delay Compared to ECG 10/24/2019 00:48:19 Sinus tachycardia no longer present Electronically Signed On 07-31-2020 11:23:33 WORKERS COMPENSATION COORDINATOR by Crow Mitchell [email or web address] <ELECTRONICALLY SIGNED> By: Crow Mitchell MD, [facility] 07/31/20 1123 2328 2328 Crow Mitchell MD, [facility] /EPI
== END 2020-07-31 00:45 | disposition left against medical advice (07) ==
LOC: ER 23:13
DX: R42 Dizziness and giddiness (principal); I12.0 Hypertensive chronic kidney disease with stage 5 chronic kidney disease or end stage renal disease; N18.6 End stage renal disease; F17.210 Nicotine dependence, cigarettes, uncomplicated; Z99.2 Dependence on renal dialysis; Z79.899 Other long term (current) drug therapy; Z88.8 Allergy status to other drugs, medicaments and biological substances; Z91.041 Radiographic dye allergy status

== ENCOUNTER 2020-12-15 03:24 | Emergency (ER) | payer OTHER ==
[~2020-12-15] VITALS: Ht 177.8 cm; Wt 81.7 kg
[2020-12-15 03:24] VITALS: BP 187/118
[2020-12-15 03:59] LABS: URINE BILIRUBIN NEGATIVE (Negative); URINE BLOOD TRACE (Negative); URINE CLARITY CLEAR; URINE COLOR YELLOW; URINE GLUCOSE-RANDOM* 1+ (Negative); URINE KETONES NEGATIVE (Negative); URINE LEUKOCYTES-REFLEX NEGATIVE (Negative); URINE NITRITE-REFLEX NEGATIVE (Negative); URINE PROTEIN (DIPSTICK) 1+ (Negative); URINE UROBILINOGEN 0.2 E.U./dl (0.2-1.0)
[2020-12-15 04:09] LABS: BACTERIA-REFLEX 1-9 Few /HPF (None Seen); CASTS None Seen /LPF (None Seen); CRYSTALS None Seen /LPF (None Seen); MUCUS 0-3 Light strn/LPF (None Seen); SQUAMOUS 0-3 Few /LPF (0-3); URINE RBC 1-2 Rare /HPF (NONE SEEN); URINE WBC-REFLEX 0-5 Rare /HPF (0-5)
== END 2020-12-15 04:51 | disposition home or self-care (01) ==
LOC: ER 03:24
PROVIDERS: Emergency Medicine
DX: R31.9 Hematuria, unspecified (principal); I12.0 Hypertensive chronic kidney disease with stage 5 chronic kidney disease or end stage renal disease; N18.6 End stage renal disease; F17.210 Nicotine dependence, cigarettes, uncomplicated; Z79.899 Other long term (current) drug therapy; Z88.6 Allergy status to analgesic agent